=== PATIENT | female | born 1980 | race Caucasian/White ===

== ENCOUNTER 2018-02-09 22:52 | Emergency (ER) | payer OTHER ==
[~2018-02-09] VITALS: Ht 160 cm; Wt 68.0 kg
[~2018-02-09 22:52] MED LIST: AMOCLA875 PO; Bactrim Ds Tab1 EACH PO; CEPH500 PO; CIPR500 PO; CLIN300 PO; Cleocin HCl300 MG PO; HYDACE5 PO; HYDACE5325 PO; HYDGUAL120 PO; IBUP600 PO; IBUP800 PO; Keflex500 MG PO; NAPR500 PO; NITR100CA PO; OXYACE5T PO; OXYC5 PO; PENVK250 PO; PROM25 PO; RXHYD5325 PO; RXHYDACE PO; SULTRIDS PO; TRAM50 PO; Ultram50 MG PO; Zofran Odt4 MG SL
[2018-02-10] MEDS ORDERED: Bactrim Ds Tab1 EACH PO (01:10)
[2018-02-10] MEDS ORDERED: CEPH500 PO (01:10)
[2018-02-10] MEDS ORDERED: Mupirocin22 GM TOP (01:10)
== END 2018-02-10 01:26 | disposition home or self-care (01) ==
LOC: ER 22:52
DX: L03.113 Cellulitis of right upper limb (principal); L03.116 Cellulitis of left lower limb; L03.115 Cellulitis of right lower limb; F17.200 Nicotine dependence, unspecified, uncomplicated; Z88.5 Allergy status to narcotic agent
CPT/HCPCS: 87070; 87075; 87147; 87205; 99283

== ENCOUNTER 2018-02-11 22:35 | Emergency (ER) | payer OTHER ==
[~2018-02-11] VITALS: Ht 160 cm; Wt 70.3 kg
[~2018-02-11 22:35] MED LIST changes: +Mupirocin22 GM TOP
== END 2018-02-12 00:48 | disposition left against medical advice (07) ==
LOC: ER 22:35
DX: Z53.21 Procedure and treatment not carried out due to patient leaving prior to being seen by health care provider (principal)

== ENCOUNTER 2018-05-13 22:23 | Emergency (ER) | payer OTHER ==
[~2018-05-13] VITALS: Ht 160 cm; Wt 68.0 kg
[2018-05-13] MEDS ORDERED: Cyclobenzaprine5 MG PO (23:34)
[2018-05-13] MEDS ORDERED: Voltaren100 GM TOP (23:34)
== END 2018-05-13 23:43 | disposition home or self-care (01) ==
LOC: ER 22:23
DX: M47.892 Other spondylosis, cervical region (principal); F17.210 Nicotine dependence, cigarettes, uncomplicated
CPT/HCPCS: 72040; 93005; 93010; 96372; 99283-25; J1885

== ENCOUNTER 2019-03-29 16:06 | Emergency (ER) | payer OTHER ==
[~2019-03-29] VITALS: Ht 160 cm; Wt 70.3 kg
[~2019-03-29 16:06] MED LIST changes: +Cyclobenzaprine5 MG PO; +Voltaren100 GM TOP
== END 2019-03-29 17:30 | disposition left against medical advice (07) ==
LOC: ER 16:06
DX: Z53.21 Procedure and treatment not carried out due to patient leaving prior to being seen by health care provider (principal)

== ENCOUNTER 2020-01-14 11:26 | Emergency (ER) | payer OTHER ==
[~2020-01-14] VITALS: Ht 160 cm; Wt 72.6 kg
[2020-01-14 12:13] LABS: BASOPHILS ABSOLUTE AUTO 0.04 K/mm3 (0.00-0.23); BASOPHILS PERCENT AUTO 1 % (0-2); EOSINOPHILS ABSOLUTE AUTO 0.14 K/mm3 (0.00-0.68); EOSINOPHILS PERCENT AUTO 2 % (0-6); Hematocrit 38.4 % (33.0-51.0); Hemoglobin 12.9 g/dL (11.5-16.0); IMMATURE GRAN ABSOLUTE AUTO 0.02 K/mm3 (0.00-0.10); IMMATURE GRAN PERCENT AUTO 0 % (0-1); LYMPHOCYTES ABSOLUTE AUTO 1.85 K/mm3 (0.84-5.20); LYMPHOCYTES PERCENT AUTO 24 % (21-46); MONOCYTES ABSOLUTE AUTO 0.71 K/mm3 (0.16-1.47); MONOCYTES PERCENT AUTO 9 % (4-13); Mean Corpuscular HGB 30.4 pg (26.0-34.0); Mean Corpuscular HGB Conc 33.6 g/dL (31.5-36.5); Mean Corpuscular Volume 91 fL (80-100); Mean Platelet Volume 10.2 fL (9.1-12.4); NEUTROPHILS ABSOLUTE AUTO 4.93 K/mm3 (1.96-9.15); NEUTROPHILS PERCENT AUTO 64 % (41-73); Platelet Count 292 K/mm3 (150-400); RDW Coefficient Variation 12.7 % (11.7-14.2); RDW Standard Deviation 41.8 fL (35.1-46.3); Red Blood Cell Count 4.24 M/mm3 (3.80-5.20); White Blood Cell Count 7.69 K/mm3 (4.00-11.30)
[2020-01-14 12:29] LABS: Alanine Aminotransfer (ALT/SGP 18 U/L (12-78); Albumin, Blood 3.9 g/dL (3.4-5.0); Alk Phos 78 U/L (50-136); Anion Gap 7 mmol/L (6-16); Aspartate Aminotrans (AST/SGOT 13 U/L (12-37); Bilirubin, Total 0.4 mg/dL (0.1-1.0); Blood Urea Nitrogen 15 mg/dL (8-24); Bun/Creatinine Ratio 21.1 (12.0-20.0); CO2, Blood 25 mmol/L (21-32); Calcium, Blood 9.1 mg/dL (8.5-10.1); Chloride, Blood 108 mmol/L (98-108); Creatinine, Blood 0.71 mg/dL (0.40-1.00); Globulin, Blood 3.8 g/dL (2.2-4.0); Glomerular Filtration Rate >60 (60-); Glucose, Blood 76 mg/dL (70-99); Potassium, Blood 3.9 mmol/L (3.5-5.5); Sodium, Blood 140 mmol/L (136-145); Total Protein, Blood 7.7 g/dL (6.4-8.2); Troponin I <0.015 ng/mL (0.000-0.040)
[2020-01-14] MEDS ORDERED: PEPCID40 MG PO (14:09)
== END 2020-01-14 14:20 | disposition home or self-care (01) ==
LOC: ER 11:26
PROVIDERS: Emergency Medicine
DX: R07.9 Chest pain, unspecified (principal); Z88.5 Allergy status to narcotic agent; F17.210 Nicotine dependence, cigarettes, uncomplicated
CPT/HCPCS: 36415; 71045; 80053; 84484; 85025; 93005; 93010; 99285-25; J2405; J3010

== ENCOUNTER 2020-04-08 22:56 | Emergency (ER) | payer OTHER ==
[~2020-04-08] VITALS: Ht 160 cm; Wt 71.7 kg
[~2020-04-08 22:56] MED LIST changes: +PEPCID40 MG PO
== END 2020-04-09 03:25 | disposition left against medical advice (07) ==
LOC: ER 22:56
DX: Z53.21 Procedure and treatment not carried out due to patient leaving prior to being seen by health care provider (principal)

== ENCOUNTER 2020-07-23 11:44 | Emergency (ER) | payer OTHER ==
[~2020-07-23] VITALS: Ht 160 cm; Wt 68.0 kg
[2020-07-23] MEDS ORDERED: BACTRIM DS TAB1 EAC1 PO (13:34)
[2020-07-23] MEDS ORDERED: CEPH500 PO (13:34)
== END 2020-07-23 13:44 | disposition home or self-care (01) ==
LOC: ER 11:44
DX: L02.31 Cutaneous abscess of buttock (principal); F17.210 Nicotine dependence, cigarettes, uncomplicated; Z88.5 Allergy status to narcotic agent
CPT/HCPCS: 99282

== ENCOUNTER 2020-12-07 16:48 | Emergency (ER) | payer OTHER ==
[~2020-12-07] VITALS: Ht 160 cm; Wt 70.3 kg
[~2020-12-07 16:48] MED LIST changes: +BACTRIM DS TAB1 EAC1 PO
[2020-12-07 17:36] LABS: BASOPHILS ABSOLUTE AUTO 0.05 K/mm3 (0.00-0.23); BASOPHILS PERCENT AUTO 1 % (0-2); EOSINOPHILS ABSOLUTE AUTO 0.16 K/mm3 (0.00-0.68); EOSINOPHILS PERCENT AUTO 2 % (0-6); Hemoglobin 12.5 g/dL (11.5-16.0); IMMATURE GRAN ABSOLUTE AUTO 0.02 K/mm3 (0.00-0.10); IMMATURE GRAN PERCENT AUTO 0 % (0-1); LYMPHOCYTES ABSOLUTE AUTO 2.03 K/mm3 (0.84-5.20); LYMPHOCYTES PERCENT AUTO 26 % (21-46); MONOCYTES ABSOLUTE AUTO 0.62 K/mm3 (0.16-1.47); MONOCYTES PERCENT AUTO 8 % (4-13); Mean Corpuscular HGB 29.8 pg (26.0-34.0); Mean Corpuscular HGB Conc 32.9 g/dL (31.5-36.5); Mean Corpuscular Volume 91 fL (80-100); Mean Platelet Volume 10.1 fL (9.1-12.4); NEUTROPHILS ABSOLUTE AUTO 4.92 K/mm3 (1.96-9.15); NEUTROPHILS PERCENT AUTO 63 % (41-73); Platelet Count 316 K/mm3 (150-400); RDW Coefficient Variation 12.9 % (11.7-14.2); RDW Standard Deviation 42.6 fL (35.1-46.3); Red Blood Cell Count 4.19 M/mm3 (3.80-5.20)
[2020-12-07 18:08] LABS: Alanine Aminotransfer (ALT/SGP 19 U/L (12-78); Albumin, Blood 3.8 g/dL (3.4-5.0); Alk Phos 68 U/L (50-136); Anion Gap 3 mmol/L (6-16); Aspartate Aminotrans (AST/SGOT 12 U/L (12-37); Bilirubin, Total 0.3 mg/dL (0.1-1.0); Blood Urea Nitrogen 15 mg/dL (8-24); Bun/Creatinine Ratio 18.5 (12.0-20.0); CO2, Blood 30 mmol/L (21-32); Calcium, Blood 9.1 mg/dL (8.5-10.1); Chloride, Blood 106 mmol/L (98-108); Creatinine, Blood 0.81 mg/dL (0.40-1.00); Globulin, Blood 3.7 g/dL (2.2-4.0); Glomerular Filtration Rate >60 (60-); Glucose, Blood 75 mg/dL (70-99); Potassium, Blood 3.6 mmol/L (3.5-5.5); Sodium, Blood 139 mmol/L (136-145); Total Protein, Blood 7.5 g/dL (6.4-8.2)
== END 2020-12-07 23:20 | disposition left against medical advice (07) ==
LOC: ER 16:48
PROVIDERS: Physician Assistant
DX: R10.31 Right lower quadrant pain (principal); Z53.21 Procedure and treatment not carried out due to patient leaving prior to being seen by health care provider
CPT/HCPCS: 36415; 74176; 80053; 83690; 85025; 99284-25

== ENCOUNTER 2021-02-11 11:46 | Emergency (ER) | payer OTHER ==
[~2021-02-11] VITALS: Ht 160 cm; Wt 68.0 kg
== END 2021-02-11 15:15 | disposition left against medical advice (07) ==
LOC: ER 11:46
DX: Z02.89 Encounter for other administrative examinations (principal); F15.90 Other stimulant use, unspecified, uncomplicated; F11.90 Opioid use, unspecified, uncomplicated; Z53.20 Procedure and treatment not carried out because of patient's decision for unspecified reasons
CPT/HCPCS: 99282

== ENCOUNTER → 2021-02-13 | Outpatient (CLI) | payer OTHER | END | disposition home or self-care (01) | LOC: LAB 17:05 → LAB SHORT 17:05 | DX: R35.0 Frequency of micturition (principal); Z88.5 Allergy status to narcotic agent | CPT/HCPCS: 87077; 87086; 87186 ==

== ENCOUNTER 2021-11-06 13:43 | Day surgery (SDC) | payer OTHER ==
[~2021-11-06] VITALS: Ht 160 cm; Wt 97.6 kg
[~2021-11-06 13:43] MED LIST changes: +HYDR1TAB94 PO
--- NOTE | 2021-11-06 17:00 | NUR ---
11/06/21 1700 Beth Colón PT WOKE FROM [place] WR[place] AND SCREAMING IN PAIN. ENCOURAGED PT TO TAKE SLOW DEEP BREATHS. PT CONTINUED BREATHING HEAVING, STATING SHE CANNOT BREATH, OXYGEN SATURATION AT 100% ROOM AIR. PT STATED SHE NEEDED HER TEETH BACK IN, IT WAS MORE IMPORTANT THAN PAIN MEDICATION. LOCATED THE TEETH, PT CONTINUES TO YELL IN PAIN, WRITHING AROUND THE BED, STATOING SHE CAN'T BREATH, SHE NEEDS SOME WATER AND SHE IS IN PAIN. PT GIVEN 25MCGS OF FENTANYL, NO CHANGES. PT STARTED SCREAMING THAT WE NEEDED TO DO SOMTHING FOR HER AND SHE NEED WATER. I EXPLAINED TO HER I CAN NOT GIVE HER WATER IF SHE CAN NOT BREATH DUE TO ASPIRATION RISK. PT CONTINUES TO YELL, DR. RODRIGUEZ NOTIFIED. MARILYN VALLE GIVEN REPORT.
--- NOTE | 2021-11-06 17:08 | NUR ---
11/06/21 1708 Beth Colón IN ROOM WITH PT
== END 2021-11-06 17:30 | disposition home or self-care (01) ==
LOC: ORSCSDS 13:43
PROVIDERS: Orthopaedic Surgery
PROC: 0PSV04Z Reposition Left Finger Phalanx with Internal Fixation Device, Open Approach (ICD-10-PCS; principal; 2021-11-06 15:45)
DX: S62.615A Displaced fracture of proximal phalanx of left ring finger, initial encounter for closed fracture (principal); Z87.891 Personal history of nicotine dependence; F41.9 Anxiety disorder, unspecified; X58.XXXA Exposure to other specified factors, initial encounter; Y93.K1 Activity, walking an animal
CPT/HCPCS: C1713; J0690; J1885; J2250; J2704; J2795; J3010; J7120

== ENCOUNTER 2021-12-11 13:42 | Day surgery (SDC) | payer OTHER ==
[~2021-12-11] VITALS: Ht 160 cm; Wt 66.0 kg
--- NOTE | 2021-12-11 17:30 | NUR ---
12/11/21 1730 Beth Colón PT GIVEN DILAUDID, NO REACTION AT THE SITE, NO REDNESS. PATIENT PAIN CONTINUES. DR. RODRIGUEZ AT BEDSIDE, AWARE OF DILAUDID MEDICATION GIVEN
--- NOTE | 2021-12-11 17:42 | NUR ---
12/11/21 1742 Beth Colón PT GIVEN MORPHIONE 4MG IV
== END 2021-12-11 17:59 | disposition home or self-care (01) ==
LOC: ORSCSDS 13:42
PROVIDERS: Orthopaedic Surgery
PROC: 0PSV04Z Reposition Left Finger Phalanx with Internal Fixation Device, Open Approach (ICD-10-PCS; principal; 2021-12-11 15:00)
DX: S62.615A Displaced fracture of proximal phalanx of left ring finger, initial encounter for closed fracture (principal); Z87.891 Personal history of nicotine dependence; B19.20 Unspecified viral hepatitis C without hepatic coma
CPT/HCPCS: A9270; C1713; J0690; J1100; J1170; J1200; J2250; J2270; J2405; J2704; J2795; J3010; J7120

== ENCOUNTER 2022-04-21 11:42 | Emergency (ER) | payer OTHER ==
[~2022-04-21] VITALS: Ht 160 cm; Wt 65.8 kg
[2022-04-21] MEDS ORDERED: AMOCLA875 PO (13:35)
== END 2022-04-21 15:47 | disposition home or self-care (01) ==
LOC: ER 11:42
DX: K04.7 Periapical abscess without sinus (principal); F17.210 Nicotine dependence, cigarettes, uncomplicated; Z88.5 Allergy status to narcotic agent; Z79.899 Other long term (current) drug therapy
CPT/HCPCS: 99282